=== PATIENT | male | born 1945 | race Caucasian/White ===

== ENCOUNTER 2017-05-27 01:05 | Emergency (ER) | payer OTHER ==
[~2017-05-27] VITALS: Ht 172.7 cm; Wt 102.1 kg
[2017-05-27 01:05] VITALS: BP 121/62
[~2017-05-27 01:05] MED LIST: AMLO1CAP9 PO; ASPI81TA2 PO; NEBI10TA2 PO; PRAV20TA4 PO; TAMS-12 PO
== END 2017-05-27 01:37 | disposition home or self-care (01) ==
LOC: ER 01:05
DX: T16.2XXA Foreign body in left ear, initial encounter (principal); Z79.82 Long term (current) use of aspirin; I10 Essential (primary) hypertension; Z87.19 Personal history of other diseases of the digestive system; X58.XXXA Exposure to other specified factors, initial encounter; Y93.89 Activity, other specified; Y92.89 Other specified places as the place of occurrence of the external cause; Y99.9 Unspecified external cause status
CPT/HCPCS: A4606; Z7610

== ENCOUNTER 2018-09-13 09:17 | Emergency (ER) | payer OTHER, MEDICARE ==
[~2018-09-13] VITALS: Ht 170.2 cm; Wt 106.6 kg
[~2018-09-13 09:17] MED LIST changes: +ASPI-1169 PO; -ASPI81TA2 PO
--- NOTE | 2018-09-13 09:28 | NUR ---
Initial contact with pt no apparent distress waiting for MD harmon
--- NOTE | 2018-09-13 09:41 | NUR ---
[employer] PRINCIPAL AT BEDSIDE
--- NOTE | 2018-09-13 09:44 | NUR ---
SEEN AND EVAL BY DR DIAZ , RECTAL EXAM PERFORMED TOLERATED WELL .
[2018-09-13 09:47] LABS: BASOPHILS % (AUTO) 0.7 % (0.0-2.0); EOSINOPHILS % (AUTO) 1.7 % (0.0-6.0); HEMATOCRIT 44 % (39-51); HEMOGLOBIN 15.3 g/dL (13.5-17.5); LYMPHOCYTES # (AUTO) 1.4 /CMM (0.8-4.8); LYMPHOCYTES % (AUTO) 31.6 % (20.0-44.0); MEAN CORPUSCULAR HGB CONC 35 g/dl (31.0-36.0); MEAN CORPUSCULAR VOLUME 87 fL (80-96); MONOCYTES # (AUTO) 0.4 /CMM (0.1-1.30); MONOCYTES % (AUTO) 8.3 % (2.0-12.0); NEUTROPHILS # (AUTO) 2.6 /CMM (1.8-8.9); NEUTROPHILS % (AUTO) 57.7 % (43.0-81.0); PLATELET COUNT (AUTO) 159 /CMM (150-450); RED BLOOD CELL COUNT(AUTO) 5.09 MIL/uL (4.5-6.0); WHITE BLOOD COUNT (AUTO) 4.5 K/uL (4.3-11.0)
[2018-09-13 09:51] LABS: OCCULT BLOOD STOOL POSITIVE (NEGATIVE)
[2018-09-13 09:59] LABS: CALCIUM, SERUM 8.4 mg/dL (8.5-10.1); CARBON DIOXIDE 26 mmol/L (21-32); CHLORIDE 104 mmol/L (98-107); CREATININE 1.5 mg/dL (0.6-1.3); GLUCOSE 211 mg/dL (74-106); POTASSIUM 4.2 mmol/L (3.5-5.1); SODIUM SERUM 140 mmol/L (136-145); UREA NITROGEN, BLOOD 24 mg/dL (7-18)
[2018-09-13 10:05] LABS: ALANINE AMINOTRANSFERASE 34 U/L (12-78); ALBUMIN 3.6 g/dL (3.4-5.0); ALKALINE PHOSPHATASE 91 U/L (46-116); ASPARTATE AMINOTRANSFERASE 16 U/L (15-37); BILIRUBIN,TOTAL 0.5 mg/dL (0.2-1.0); TOTAL PROTEIN, SERUM 7.2 g/dL (6.4-8.2)
--- NOTE | 2018-09-13 10:05 | NUR ---
GOT ON HOLD W/ DR MORENO, SPEAKING W/ AUNG JACKSON.
--- NOTE | 2018-09-13 10:51 | NUR ---
Dr Edge discussed tropinin result with pt and plan of care
--- NOTE | 2018-09-13 12:54 | NUR ---
repeat troponin drawn by cemetery laborer
--- NOTE | 2018-09-13 13:31 | NUR ---
repeat troponin obtained and Dr Mccurdy discussed with pt and . IV access d/irma RAC catheter intact
[2018-09-13 13:32] VITALS: BP 140/65
== END 2018-09-13 13:37 | disposition home or self-care (01) ==
LOC: ER 09:23
DX: K62.5 Hemorrhage of anus and rectum (principal); K64.9 Unspecified hemorrhoids; K59.00 Constipation, unspecified; R79.89 Other specified abnormal findings of blood chemistry; I10 Essential (primary) hypertension; G47.30 Sleep apnea, unspecified; Z98.890 Other specified postprocedural states; Z79.82 Long term (current) use of aspirin
CPT/HCPCS: 36415; 80053-TC; 82272-TC; 84484-TC; 85025-TC; 85610-TC; 85730-TC; A4606; Z7610

== ENCOUNTER 2020-05-31 12:40 | Emergency (ER) | payer OTHER ==
[~2020-05-31] VITALS: Ht 172.7 cm; Wt 104.3 kg
[~2020-05-31 12:40] MED LIST changes: +AMLO-102 PO; -AMLO1CAP9 PO
--- NOTE | 2020-05-31 13:08 | NUR ---
CAME IN FOR INTERMITTENT LLQ ABDOMINAL PAIN X 2 DAYS. TO ER BED 11, HOOKED TO BP CUFF AND POX, CHANGED TO HOSP GOWN, WARM BLANKET PROVIDED, PATIENT AAO x 4, BREATHING EVEN AND UNLABORED, NOT IN RESPIRATORY DISTRESS. DR GUIDRY AT BEDSIDE
[2020-05-31 13:35] LABS: BASOPHILS % (AUTO) 0.5 % (0.0-2.0); EOSINOPHILS % (AUTO) 1.3 % (0.0-6.0); HEMATOCRIT 41 % (39-51); HEMOGLOBIN 13.8 g/dL (13.5-17.5); LYMPHOCYTES # (AUTO) 1.3 /CMM (0.8-4.8); LYMPHOCYTES % (AUTO) 25.9 % (20.0-44.0); MEAN CORPUSCULAR HGB CONC 34 g/dl (31.0-36.0); MEAN CORPUSCULAR VOLUME 90 fL (80-96); MONOCYTES # (AUTO) 0.4 /CMM (0.1-1.30); MONOCYTES % (AUTO) 7.6 % (2.0-12.0); NEUTROPHILS # (AUTO) 3.2 /CMM (1.8-8.9); NEUTROPHILS % (AUTO) 64.7 % (43.0-81.0); PLATELET COUNT (AUTO) 160 /CMM (150-450); RED BLOOD CELL COUNT(AUTO) 4.58 MIL/uL (4.5-6.0)
[2020-05-31 13:51] LABS: CALCIUM, SERUM 9.3 mg/dL (8.5-10.1); CARBON DIOXIDE 26 mmol/L (21-32); CHLORIDE 106 mmol/L (98-107); CREATININE 1.9 mg/dL (0.6-1.3); GLUCOSE 147 mg/dL (74-106); POTASSIUM 4.5 mmol/L (3.5-5.1); SODIUM SERUM 139 mmol/L (136-145); UREA NITROGEN, BLOOD 27 mg/dL (7-18)
[2020-05-31 13:57] LABS: ALANINE AMINOTRANSFERASE 31 U/L (12-78); ALBUMIN 3.8 g/dL (3.4-5.0); ALKALINE PHOSPHATASE 71 U/L (46-116); ASPARTATE AMINOTRANSFERASE 19 U/L (15-37); BILIRUBIN,DIRECT 0.2 mg/dL (0.0-0.2); BILIRUBIN,TOTAL 0.8 mg/dL (0.2-1.0); LIPASE 80 U/L (73-393); TOTAL PROTEIN, SERUM 7.3 g/dL (6.4-8.2)
--- NOTE | 2020-05-31 14:16 | NUR ---
PICKED UP BY ROUNDING MACHINE TENDER VIA [facility] FOR CT SCAN.
[2020-05-31 15:22] LABS: APPEARANCE,URINE Clear (CLEAR); BILIRUBIN,URINE Negative (NEGATIVE); BLOOD, URINE Moderate Ery/uL (NEGATIVE); COLOR,URINE Yellow (YELLOW); KETONES,URINE Negative (NEGATIVE); LEUKOCYTE ESTERASE ,URINE Negative (NEGATIVE); NITRITE, URINE Negative (NEGATIVE); PH,URINE 5.5 (5.0-8.0); PROTEIN,URINE Negative (NEGATIVE); UGLUCOSE Negative (NEGATIVE); UROBILINOGEN,URINE 0.2 EU/dL (0.2)
[2020-05-31 15:24] LABS: BACTERIA,URINE None seen /HPF (None Seen); SQUAMOUS EPITHELIAL CELL,UR Few /HPF (None Seen); WBC,URINE 0-2 /HPF (0-3)
[2020-05-31] MEDS ORDERED: HYDROCODONE/APAP 5/325MG TABLET ONE (15:45)
[2020-05-31] MEDS ORDERED: ONDANSETRON 4 MG TAB.RAPDIS ONE (15:45)
[2020-05-31] MEDS: ONDANSETRON 4 MG TAB.RAPDIS SL ONE (15:49)
[2020-05-31] MEDS: HYDROCODONE/APAP 5/325MG TABLET PO ONE (15:49)
--- NOTE | 2020-05-31 17:49 | NUR ---
IV removed. Catheter intact and site benign. Pressure and 4x4 applied to site. No bleeding noted.Patient discharged to home in stable condition. Written and verbal after care instructions given. Patient verbalizes understanding of instruction. Instructed not to drive
[2020-05-31 18:12] VITALS: BP 119/61
== END 2020-05-31 17:51 | disposition home or self-care (01) ==
LOC: ER 12:40
DX: N13.2 Hydronephrosis with renal and ureteral calculous obstruction (principal); K80.20 Calculus of gallbladder without cholecystitis without obstruction; K76.0 Fatty (change of) liver, not elsewhere classified; R16.1 Splenomegaly, not elsewhere classified; I10 Essential (primary) hypertension; E78.5 Hyperlipidemia, unspecified; I25.10 Atherosclerotic heart disease of native coronary artery without angina pectoris; E11.9 Type 2 diabetes mellitus without complications; E66.9 Obesity, unspecified; Z68.35 Body mass index [BMI] 35.0-35.9, adult; Z87.442 Personal history of urinary calculi; Z95.1 Presence of aortocoronary bypass graft; Z95.5 Presence of coronary angioplasty implant and graft; Z79.82 Long term (current) use of aspirin; Z79.899 Other long term (current) drug therapy
CPT/HCPCS: 36415; 74176; 80048; 80076; 81001; 83690; 85025; 99285; Q0162; 81000-TC

== ENCOUNTER 2020-06-02 03:02 | Emergency (ER) | payer OTHER ==
[~2020-06-02] VITALS: Ht 172.7 cm; Wt 104.3 kg
[2020-06-02 03:15] VITALS: BP 150/67
--- NOTE | 2020-06-02 03:15 | NUR ---
BIBSELF C/O L SIDE ABDOMINAL PAIN . REPORTED HE WAS SEEN AT [facility] ER AND DIAGNOSED WITH RENAL STONE. -N/V/D
--- NOTE | 2020-06-02 03:22 | NUR ---
pt refused iv line, blood draw and medication and walked out of the hospital without signing the AMA form . Dr. Espana made aware.
[2020-06-02] MEDS ORDERED: IV NS 0.9% 500 ML BAG IV ONE (03:30)
[2020-06-02] MEDS ORDERED: KETOROLAC TROMETHAMINE INJ 30 MG/ML VIAL IV ONE (03:30)
[2020-06-02] MEDS ORDERED: ONDANSETRON HCL/PF 4 MG/2 ML VIAL IVP ONE (03:30)
== END 2020-06-02 03:27 | disposition left against medical advice (07) ==
LOC: ER 03:08
DX: N20.1 Calculus of ureter (principal); I10 Essential (primary) hypertension; E78.5 Hyperlipidemia, unspecified; I25.10 Atherosclerotic heart disease of native coronary artery without angina pectoris; E11.9 Type 2 diabetes mellitus without complications; N40.0 Benign prostatic hyperplasia without lower urinary tract symptoms; Z95.818 Presence of other cardiac implants and grafts; Z98.890 Other specified postprocedural states; Z79.899 Other long term (current) drug therapy; Z79.82 Long term (current) use of aspirin
CPT/HCPCS: J7030